=== PATIENT | male | born 2000 | race Caucasian/White ===

== ENCOUNTER → 2024-10-28 | Outpatient (CLI) | payer OTHER, SELFPAY ==
--- NOTE | 2024-10-28 13:30 | RAD_ITS ---
PROCEDURE: ABDOMEN SINGLE VIEW 10/28/2024 REASON FOR EXAM: CALCULUS OF URETER TECHNIQUE: Single view abdomen. COMPARISON: None. FINDINGS: The lung bases are clear. Bowel gas pattern is within normal limits. There are scattered phleboliths within pelvis. No acute osseous abnormality seen. Punctate calculi noted within the expected location of the lower pole of the right kidney. Evaluation for ureteral stone is limited. RAD/Abdomen Single View IMPRESSION: Evaluation for ureteral stone is limited. If this is of clinical concern, cons ider cross-sectional imaging. Punctate stones overlying the expected location of the right kidney. Reading Location: [id number]
== END | disposition home or self-care (01) ==
LOC: RAD 13:25
PROVIDERS: PCP Physician Assistant; Referring Provider Urology; Visit Provider Urology
DX: N20.1 Calculus of ureter (principal)
CPT/HCPCS: 74018

== ENCOUNTER → 2024-11-02 | Outpatient (CLI) | payer OTHER, SELFPAY | END | disposition home or self-care (01) | LOC: LABSPEC 15:37 | PROVIDERS: PCP Physician Assistant; Referring Provider Urology; Visit Provider Urology | DX: N20.1 Calculus of ureter (principal) | CPT/HCPCS: 82360 ==